=== PATIENT | female | born 1950 | race Caucasian/White ===

== ENCOUNTER 2018-01-05 06:23 | Inpatient (IN) | payer OTHER, MEDICARE ==
[2018-01-04 22:00] VITALS: PULSE 88
[~2018-01-05] VITALS: Ht 154.9 cm; Wt 60.8 kg
[~2018-01-05 06:23] MED LIST: AMLO5TAB2 PO; MEGE40TA PO; METO25TA3 PO; VITA2000 PO
[2018-01-05] MEDS ORDERED: SODIUM CHLORID 0.9% 500 ML IV PRN (07:15)
[2018-01-05] MEDS ORDERED: POVIDONE IODINE 5% (ANTISEPSIS KIT) 4 APPLICATIONS EACH NARE PRN (07:15)
[2018-01-05] MEDS ORDERED: CHLORHEXIDINE GLUCONATE 2 % 1 PACK (2 CLOTHS) TOPICAL PRN (07:15)
[2018-01-05] MEDS ORDERED: LACTATED RINGER'S 1000 ML IV PRN (07:15)
[2018-01-05] MEDS ORDERED: METOPROLOL TARTRATE 25 MG TAB PO PRN (07:15)
[2018-01-05] MEDS ORDERED: INSULIN HUMAN REGULAR 1,000 UNITS/10 ML VIAL SQ PRN (07:15)
[2018-01-05] MEDS ORDERED: SUGAMMADEX SODIUM 200 MG/2 ML VIAL IV PUSH ONE (07:17)
[2018-01-05] MEDS ORDERED: ACETAMINOPHEN 1000 MG/100 ML 100 ML IV ONE (07:17)
[2018-01-05] MEDS ORDERED: ARTIFICIAL TEARS OPTH OINT 3.5 APPLIC/3.5 GM TUBO ONE (07:17)
[2018-01-05] MEDS ORDERED: ceFAZolin INJ 1,000 MG VIAL ONE (07:38)
[2018-01-05] MEDS ORDERED: HEPARIN SODIUM - SQ 10,000 UNITS/ML VIAL ONE (07:38)
[2018-01-05] MEDS ORDERED: SODIUM CHLORIDE 0.9% INJ 100 ML ONE (07:38)
[2018-01-05] MEDS ORDERED: FAMOTIDINE 20 MG/2 ML VIAL ONE (08:06)
[2018-01-05] MEDS ORDERED: HEPARIN SODIUM - SQ 10,000 UNITS/ML VIAL SQ SCH (08:15)
[2018-01-05] MEDS ORDERED: ceFAZolin 1,000 MG/NS 100 ML IV SCH ×2 (08:15)
[2018-01-05] MEDS ORDERED: METHYLENE BLUE 10 MG/ML VIAL OTHER ONE (11:47)
[2018-01-05] MEDS ORDERED: ceFAZolin INJ 1,000 MG VIAL IV ONE ×3 (11:51→15:00)
[2018-01-05] MEDS ORDERED: STERILE WATER FOR INJECTION 20 ML VIAL IV ONE (12:00)
[2018-01-05] MEDS ORDERED: ONDANSETRON HCL 4 MG/2 ML VIAL IV ONE (12:00)
[2018-01-05] MEDS ORDERED: ESMOLOL HCL 100 MG/10 ML VIAL IV ONE (12:00)
[2018-01-05] MEDS ORDERED: ePHEDrine/NS 25 MG/5 ML SYRINGE IV ONE (12:00)
[2018-01-05] MEDS ORDERED: PROPOFOL 200 MG/20 ML AMP IV ONE (12:00)
[2018-01-05] MEDS ORDERED: DEXAMETHASONE SOD PHOS 4 MG/ML VIAL IV ONE (12:00)
[2018-01-05] MEDS ORDERED: NORMOSOL R INJ 1,000 ML IV ONE (12:00)
[2018-01-05] MEDS ORDERED: KETOROLAC TROMETHAMINE 30 MG/ML (IVP) VIAL IV PUSH ONE (12:00)
[2018-01-05] MEDS ORDERED: ROCURONIUM INJ 50 MG/5 ML SYRINGE IV PUSH ONE (12:00)
[2018-01-05] MEDS ORDERED: PHENYLEPH/NS 1000 MCG/10 ML SYR IV ONE (12:00)
[2018-01-05] MEDS ORDERED: LIDOCAINE HCL 1% PF 5 ML SYRINGE OTHER ONE (12:00)
[2018-01-05] MEDS ORDERED: VECURONIUM BROMIDE 20 MG VIAL IV ONE (12:00)
[2018-01-05] MEDS ORDERED: PHENYLEPHRINE HCL 10 MG/ML VIAL IV ONE (12:00)
[2018-01-05] MEDS ORDERED: *MEPERIDINE 25 MG INJ VIAL PERIprocedural Use ONLY ONE (12:47)
[2018-01-05] MEDS ORDERED: MIDAZOLAM HCL 2 MG/2 ML VIAL ONE (12:49)
[2018-01-05] MEDS: D5-1/2 NS + KCL 20 MEQ INJ 1,000 ML IV SCH (14:15)
[2018-01-05] MEDS ORDERED: SODIUM CHLORIDE 0.9% FLUSH 10 ML FLUSH IV FLUSH PRN (15:00)
[2018-01-05] MEDS: KETOROLAC TROMETHAMINE 30 MG/ML (IVP) VIAL IVP SCH ×2 (15:00→21:46)
[2018-01-05] MEDS ORDERED: diphenhydrAMINE HCL 25 MG CAP PO PRN (15:00)
[2018-01-05] MEDS ORDERED: DO NOT ADM ANY ANTICOAGULANT DRUGS PRN (15:00)
[2018-01-05] MEDS ORDERED: LORazepam 0.5 MG TAB PO PRN (15:00)
--- NOTE | 2018-01-05 16:27 | MP ---
cc: Zoey Daniels MD,Erin Britt MD DATE OF OPERATION: 01/05/2018 PREOPERATIVE DIAGNOSIS: 1. Uterine papillary serous carcinoma. 2. Enlarged uterus. POSTOPERATIVE DIAGNOSIS: 1. Uterine papillary serous carcinoma. 2. Enlarged uterus. 3. Extensive pelvic adhesions. PROCEDURE: Robotic-assisted laparoscopic hysterectomy, bilateral salpingo-oophorectomy, partial omentectomy, bilateral pelvic lymph node excisional biopsies, intraperitoneal biopsies, extensive lysis of adhesions. SURGEON: Zoey Daniels MD PATTERN ASSEMBLER: Erica coding assistant. ANESTHESIA: General endotracheal anesthesia. ESTIMATED BLOOD LOSS: 250 mL. IV FLUIDS: 1500 mL. URINE OUTPUT: 150 mL. HISTORY: A 67-year-old female with bleeding and evaluation biopsy showed uterine papillary serous carcinoma. Imaging showed a prominent uterus with a 5 centimeter strongly PET avid mass effect that seemed to be within the endometrial cavity, possibly growing in the myometrium. There was no overt evidence of metastatic disease beyond the uterus. She was counseled regarding these findings and recommendations for surgery. She was seen again in the preop holding area with family where she was again counseled. The findings were reviewed, the plan of care was discussed, questions were answered, she expressed good understanding and agrees to move forward with surgery. FINDINGS: The uterine cavity sounds to 13 centimeters. There is blood and some polypoid tumor that comes through the cervical os during dilation at the beginning of the case. In the peritoneal cavity there is no overt evidence of metastatic disease. The uterine fundus is enlarged with a mass-like effect. Tubes and ovaries grossly appear normal. The distal omentum is adherent densely in the pelvis. The lower edge of the omentum is stuck to the uterus, stuck against the left pelvic sidewall and colon, and the colon is overlying and obliterating access to the left adnexal structures. There are diverticulum without acute diverticulitis but the adhesions suggest result from prior diverticulitis. Right tube and ovary there are minimal adhesions. The appendix appears normal, although there are adhesions in the region of the ileocecal area to the right anterior abdominal wall, but the tissue in that region appears normal. The omentum grossly appears normal other than extensive adhesions. The large and small bowel and adjacent mesenteric are normal without obvious peritoneal implants and liver diaphragm edges appear smooth. There is no appreciably enlarged retroperitoneal adenopathy in the paraaortic or paracaval region. In the pelvis the lymph nodes are essentially normal with the exception of slightly prominent lymph nodes in the right distal external iliac region and in the left proximal external iliac region, but these were only slightly prominent. Retroperitoneal dissection bilaterally did not reveal any other suspicious lymph nodes. The uterus once removed showed a tumor to be at least 3.5 centimeters in base. In discussion with pathology they are made aware that I curetted a large volume of tumor out of the endometrial cavity to reduce the size of the uterus to help deliver the specimen transvaginally and that curetted tumor was also sent down for permanent histopathologic evaluation, in addition to the uterus, cervix, tubes and ovaries. STATEMENT OF COMPLEXITY/MODIFIER: Complexity and duration of this case was increased significantly and required extensive additional dissection due to significant adhesions and requiring significant adhesiolysis to gain access to the pelvis to restore normal anatomy and to accomplish surgical objectives and a modifier should be applied accordingly. PROCEDURE: She was taken to the operating room and placed in dorsal lithotomy position after general endotracheal anesthesia was administered. Timeout was undertaken. She was identified by sight recognition and hospital ID bracelet and the proposed procedure was reviewed and confirmed. She was carefully positioned in Josue stirrups. Her arms were padded and secured to the sides. She was further secured to the operating table with egg crate padding and tape in a cross chest over the shoulder fashion. All sites were noted to be properly aligned with no malalignments or pressure points. She was placed in lithotomy position, after being prepped and draped in sterile fashion, cervix grasped, uterine cavity sounded up to 13 centimeters with findings as described above. The cervix was dilated and a standard VCare manipulator was inserted and secured in the usual fashion. Motta catheter was placed in the bladder. She was returned to low lithotomy position. Change of sterile gloves was undertaken. We completed draping in anticipation of laparoscopy, confirmed that an orogastric tube was in the stomach on suction. With manual elevation of the abdominal wall and direct laparoscopic visualization a 5 mm cannula was introduced into the left upper quadrant and atraumatic entry was confirmed. Carbon dioxide gas was insufflated into the peritoneal cavity. A 12 mm cannula was placed in midline above the umbilicus. An 8 mm cannula was placed in the right upper quadrant, left lateral quadrant. Original 5 mm was exchanged for an 8 mm cannula. She was placed in steep Trendelenburg position. Peritoneal washings were obtained for cytology. Lysis of adhesions were initiated and the small bowel was folded back on its mesenteric root beneath the omentum that was densely adherent as described and three Ray-Brent sponges were placed in the peritoneal cavity. The robotic system was brought into the operative field, attached in the usual fashion. Monopolar scissors, fenestrated bipolar forceps and ProGrasp manipulators were placed in arms number one, two and three, respectively and I took my place at the surgeon's console. Adhesiolysis was initiated on the left side where sharp dissection was used to free the omentum from its adhesions. There was vascular attachments to the uterine fundus that resulted in some mild continued oozing. A distal segment of the omentum was isolated, rendered hemostatic with bipolar cautery and transected in stepwise fashion to take a large piece of omentum as additional adhesiolysis was carried out to remove it from the left pelvic sidewall and this was placed in the cul-de-sac as partial omentectomy for permanent histopathologic analysis. Additional adhesions were taken down to mobilize the omentum above the pelvis brim and then adhesions were taken down to free the colon from its attachments against the left pelvic sidewall to mobilize the adnexa, to gain access to the pelvic sidewall and retroperitoneal structures. The left round ligament was isolated, cauterized, transected. The anterior and posterior leafs of the broad ligament were further opened. The left ureter was identified. The left infundibulopelvic ligament was isolated. The intervening peritoneum was opened. The infundibulopelvic ligament was isolated above the pelvic brim where it was cauterized and transected. Posterior peritoneum opened along the left side of the uterus and cervix and the left vesicouterine peritoneum dissected off the lower uterine segment and cervix. The left uterine vessels were skeletonized and cauterized. Attention was directed toward the right side. Right round ligament isolated, cauterized, transected. The anterior and posterior leafs of the broad ligament were opened. The right ureter was identified, right infundibulopelvic ligament was isolated, intervening peritoneum was opened. The infundibulopelvic ligament was isolated to the level of the pelvic brim where it was cauterized and transected. Posterior peritoneum was opened along the right side of the uterus and cervix and the right vesicouterine peritoneum was dissected off the lower uterine segment and cervix and the right uterine vessels were skeletonized and cauterized. The uterus was now blenched as the main blood supplies had been secured, so the right uterine vessels were transected. The cardinal, paracervical and uterosacral ligaments were isolated carefully, cauterized and transected in a step-bates fashion until attachments were released along the right side of the uterus and cervix. Attention was redirected toward the left side where the left uterine vessels were transected. The cardinal, paracervical and uterosacral ligaments were isolated, cauterized and transected in a step-bates fashion, thereby freeing the attachments along the left side of the uterus and cervix, thereby freeing the attachments along the left side. Circumferential colpotomy was performed the cervix from the upper vagina. The specimen was too large in its current state for transvaginal delivery. At this point I left the surgeon's console to the perineum where the cervix was grasped with tenaculum and the uterine cavity was curetted where a large volume of tumor and old blood and clot were removed. In the process of curetting the cavity the uterine size reduced significantly such that the specimen was now able to be delivered transvaginally, which included uterus, cervix, tubes and ovaries. A pneumo-occluder balloon was placed in the vagina to maintain pneumoperitoneum. I returned to the surgeon's console. Using a ring forceps the partial omentectomy specimen was grasped and delivered transvaginally. Instruments one and three exchanged for needle drivers as 0-Vicryl suture was introduced, the vaginal cuff was closed starting at the left corner, full-thickness closure including the posterior peritoneum and the edge of the uterosacral ligament tied via instrument tie. Suture was held on counter traction as running continuous full-thickness closure. It was carried across the vaginal apex to the contralateral corner where it was similarly fixed, secured in similar fashion and tied. The needle was cut and removed. The integrity of the bladder was confirmed by filling the bladder with saline dyed with methylene blue. The bladder distended nicely under pressure. There were no weak spots in the bladder, no visible blue dye, certainly no extravasation of dye. There was a good margin between the vaginal cuff suture line and the bladder. Good peristalsis of ureters bilaterally and the bladder was drained. Pathology came back showing sizeable tumor favoring papillary serous carcinoma. Retroperitoneal dissection was carried out on the right and left pelvis opening the paravesical, pararectal spaces. The lymphatic tissues were inspected, essentially normal throughout and in keeping with our preoperative discussion and keeping with her wishes as again expressed in the preop holding area, she wanted to minimize morbidity and in the absence of obvious disease we limited lymph node biopsies to anything that appeared suspicious but would forego full lymphadenectomy to try to avoid lymphedema and ultimately it may not impact on our treatment recommendations. Nevertheless, a single isolated lymph node perhaps a centimeter in the distal external iliac area on the right side was removed with bipolar cautery and sharp dissection and placed in the right paracolic gutter for later retrieval and placed on top of a Ray-Brent sponge. The remaining lymphatics were inspected, palpated and no abnormality seen. Attention was directed to inspecting and palpating the paracaval and paraaortic region which showed normal lymphatic tissue. Attention was redirected to the left pelvis where after the paravesical and pararectal spaces had been opened, lymphatics were visibly and palpably inspected. A slightly prominent lymph node in the proximal external iliac region was isolated, removed with bipolar cautery and sharp dissection and placed in the right paracolic gutter. Peritoneal biopsies were then obtained from the abdomen and pelvis. Adhesions were taken down. The adhesions were included with the biopsies. Multifocal peritoneal biopsies were collected and placed in the right paracolic gutter. The pelvis was aggressively irrigated. All sites were hemostatic after small bleeders were rendered hemostatic with bipolar cautery and hemostatic Surgicel powder was placed across the vaginal cuff and lateral pelvic sidewalls. It was felt that all reasonable surgical objectives had been completed, so the instruments were removed. The robotic system was disengaged from the operative field. I reentered the bedside under sterile condition. Using laparoscopic visualization a 12 centimeter EndoCatch bag was used to capture the lymph nodes and peritoneal biopsies which were brought out through the abdominal wall. The specimens were and labeled appropriately for permanent histopathologic analysis. Next, each of the three Ray-Brent sponges that had been placed in the peritoneal cavity were grasped, each were removed individually, inspected and noted to be removed in their entirety. There were no remaining foreign objects in the peritoneal cavity. Preliminary counts were correct. Attention was directed toward closing. The 12 mm fascial defect was closed with 0-Vicryl suture using a needle pass apparatus, tied securely which rendered the fascia completely airtight and hemostatic. The remaining cannulas were withdrawn. Carbon dioxide gas was removed from the peritoneal cavity. 3-0 Vicryl subcutaneous, 3-0 Vicryl subcuticular and Steri-Strips were used to close the skin incisions. She was returned to dorsal lithotomy position. Pelvic exam confirmed the vaginal cuff was well supported, no vaginal lacerations, no remaining foreign objects in the vagina. Final counts were correct. Superficial irritation at the introitus was rendered hemostatic with topical silver nitrate. She was returned to dorsal supine position and was pending reversal of anesthesia when I left the operating room to precede her to the post-anesthesia care unit and to speak to family members who were waiting in the surgical waiting area. MD CHU Cui/ELMER/deedee , 01:37 PM , 03:04 PM
[2018-01-05] MEDS: traMADol HCL 50 MG TAB PO PRN (17:12)
--- NOTE | 2018-01-05 18:17 | EKG ---
Date Performed: 01/05/2018 Time Performed: 07:49:34 PTAGE: 67 years EKG: SINUS TACHYCARDIA WITH OCCASIONAL VENTRICULAR PREMATURE COMPLEXES ABNORMAL RHYTHM ECG NO PREVIOUS TRACING DOCTOR: Shaan Chaves Interpretating Date/Time 01/05/2018 18:16:30
[2018-01-05 18:30] VITALS: BP 136/58; PULSE 104; RESP 18; TEMP 97.5; O2SAT 100
[2018-01-05 19:00] VITALS: PULSE 104
[2018-01-05 20:00] VITALS: BP 106/53; PULSE 109; PULSE 90; RESP 16; TEMP 98.5; O2SAT 98
[2018-01-05 21:00] VITALS: PULSE 82
[2018-01-05] MEDS: SODIUM CHLORIDE 0.9% FLUSH 10 ML FLUSH IV FLUSH SCH (21:00)
[2018-01-05 23:00] VITALS: PULSE 78
[2018-01-06] VITALS (23 sets, daily range): BP systolic 94–128; BP diastolic 49–79; PULSE 70–126; RESP 14–20; TEMP 97.6–99.6; O2SAT 98–100
[2018-01-06] MEDS: D5-1/2 NS + KCL 20 MEQ INJ 1,000 ML IV SCH ×2 (00:35→19:54)
[2018-01-06] MEDS: KETOROLAC TROMETHAMINE 30 MG/ML (IVP) VIAL IVP SCH ×2 (04:00→08:05)
[2018-01-06] MEDS ORDERED: TRAM50 PO (07:23)
--- NOTE | 2018-01-06 07:45 | MD ---
cc: Zoey Daniels MD MerrittLaurita holbrook MD,Anitha Huston MD DATE OF DISCHARGE: DATE OF ADMISSION: 01/05/2018 DATE OF DISCHARGE: 01/06/2018 PROCEDURE: 01/05/2018, robotic-assisted laparoscopic hysterectomy, bilateral salpingo-oophorectomy, partial omentectomy, bilateral pelvic lymph node excisional biopsies, peritoneal biopsies. DIAGNOSES: Uterine papillary serous carcinoma. HOSPITAL COURSE: She has done well in early postoperative period. Hemodynamically stable. Ins and outs 2340/3150. Labs pending. PHYSICAL EXAMINATION: VITAL SIGNS: She is afebrile, pulse ranging from 76-92, respirations 14-16, blood pressure 94-136/49-58, O2 saturations greater than or equal to 98%. GENERAL: Alert and oriented x 3. LUNGS: Clear, mild rales at the bases. CARDIAC: Her heart rate is irregular rate and rhythm, consistent with baseline, rate controlled. ABDOMEN: Soft. Incisions clean and dry. GYNECOLOGIC: No bleeding. EXTREMITIES: Nontender. ASSESSMENT: Postoperative day #1. Activities, restrictions again discussed. Preliminary findings, preliminary pathology reviewed. Questions asked and answered. She expressed good understanding. PLAN: I anticipate she will meet criteria for discharge to home. She is to contact our office to ensure she has followup scheduled in 2 weeks. She is to resume prior medications. She will have a prescription for tramadol. She knows she can supplement with [id number] medication as needed. Furthermore, our office number is again made available and she can contact us should she have any questions or problems between now and the time of discharge. MD CHU Cui/DAYRON , 07:29 AM , 07:43 AM
[2018-01-06] MEDS: SODIUM CHLORIDE 0.9% FLUSH 10 ML FLUSH IV FLUSH SCH ×2 (09:00→20:04)
[2018-01-06] MEDS ORDERED: METOPROLOL TARTRATE 25 MG TAB PO SCH (09:00)
[2018-01-06] MEDS ORDERED: amLODIPine BESYLATE 5 MG TAB PO SCH (09:00)
[2018-01-06 10:19] LABS: BICARBONATE 23.4 MEQ/L (21.0-32.0); CALCIUM 8.3 MG/DL (8.5-10.1); CREATININE 0.92 MG/DL (0.50-1.00)
[2018-01-06 11:58] LABS: AUTOMATED NEUTROPHIL # 7.1 TH/MM3 (1.8-7.7); BASOPHIL % 0.2 % (0.0-2.0); EOSINOPHIL % 0.1 % (0.0-4.0); LYMPH % 26.7 % (9.0-44.0); LYMPHOCYTE # 2.8 TH/MM3 (1.0-4.8); MEAN CELL VOLUME 89.4 FL (80.0-100.0); MEAN CORPUSCULAR HEMOGLOBIN 31.7 PG (27.0-34.0); MEAN CORPUSCULAR HGB CONC 35.4 % (32.0-36.0); MEAN PLATELET VOLUME 8.3 FL (7.0-11.0); MONO % 5.8 % (0.0-8.0); MONOCYTE # 0.6 TH/MM3 (0-0.9); NEUT % 67.2 % (16.0-70.0); PLATELET COUNT 216 TH/MM3 (150-450); RED BLOOD COUNT 2.33 MIL/MM3 (4.00-5.30); RED CELL DISTRIBUTION WIDTH 14.1 % (11.6-17.2); WHITE BLOOD COUNT 10.6 TH/MM3 (4.0-11.0)
[2018-01-06 12:06] LABS: HEMATOCRIT 20.8 % (35.0-46.0); HEMOGLOBIN 7.4 GM/DL (11.6-15.3)
[2018-01-06 15:35] LABS: HEMATOCRIT 21.3 % (35.0-46.0); HEMOGLOBIN 7.4 GM/DL (11.6-15.3); MEAN CORPUSCULAR HEMOGLOBIN 31.1 PG (27.0-34.0); MEAN CORPUSCULAR HGB CONC 34.6 % (32.0-36.0); MEAN PLATELET VOLUME 8.4 FL (7.0-11.0); PLATELET COUNT 216 TH/MM3 (150-450); RED BLOOD COUNT 2.37 MIL/MM3 (4.00-5.30); RED CELL DISTRIBUTION WIDTH 14.5 % (11.6-17.2); WHITE BLOOD COUNT 10.3 TH/MM3 (4.0-11.0)
--- NOTE | 2018-01-06 15:44 | MB ---
cc: Zoey Daniels MD,Laurita Britt MD DATE OF CONSULT: This is a followup visit, seeing Penny Fung, who remains asymptomatic. She has been up walking around, voiding without difficulty, tolerating oral intake and states that she feels very well and is anxious to go home. She is seen again because her late draw blood work results finally came back showing a hemoglobin of 7.4 and a hematocrit of 20.8. This was reported at 11:35 a.m. White count 10.6, platelets 216. Electrolytes essentially normal, BUN and creatinine 4 and 0.92. Potassium 3.5. It is noted that on 01/02 her hemoglobin was obtained and was 13, so this represents a substantial drop since that lab value. Pertinent in her history is she states that for approximately 6 or 7 days prior to surgery, she started bleeding quite heavily and was passing clots. She brought this to the attention of our office, and we were able to move her surgery up as she was scheduled for surgery next week. We were able to move her surgery up to of this week (yesterday). It is noted that she remains afebrile. Pulse ranges from 76 to 104. Respirations are 14-20. Her blood pressure remains in the 122-128 over 59-66 range, and her pulse ox is 100% on room air. She is alert and oriented x 3. No acute distress. Bright spirits. LUNGS: Clear. CARDIOVASCULAR: Regular rate and rhythm. ABDOMEN: Completely soft. There is no rigidity, no rebound or guarding. The incisions are healing well. There is some slight ecchymosis around the incisions. No expanding changes. No hematoma. No palpable induration. GYNECOLOGIC: She reports no bleeding, just a very small amount of discharge. Time was spent discussing with her reviewing the findings of her case to date to go from a hemoglobin of 13 down to 7.4 is concerning; however, clinically, she is doing very well, hemodynamically stable, and I suspect that that notable drop is actually reflective of the 3 days of heavy bleeding between getting the hemoglobin drawn on 01/02/2018 and the followup postop hematocrit drawn on 01/06/2018. Nevertheless, I have explained the reason that we ordered a repeat CBC that will be drawn today at 3 p.m. If that has stabilized or has increased a bit due to fluid equilibration, I think we have an explanation of a falsely elevated value and not an accurate preop value given the heavy bleeding she reports for days prior to surgery. Conversely, should the hemoglobin drop further despite her clinical presentation and hemodynamic stability, we might need to be concerned about the possibility of some postoperative oozing. The intraoperative blood loss was only estimated to be approximately 250 mL, so that would not explain the change. Nonetheless, she is gracious and understands and willing to stay here longer to ensure that she is doing well. We would like to make sure she is doing well before she goes home, and she certainly is an individual who looks and feels significantly better than her laboratory value would suggest. ASSESSMENT: 1. Postoperative day #1 significant drop in hematocrit as observed, outlined and theorized above. 2. Discussion. PLAN: Recheck CBC today at 3 p.m. Will await those results and make a decision if she may be discharged or if any further followup or intervention is warranted. MD CHU Cui/SCAR , 02:32 PM , 03:43 PM
[2018-01-06 18:21] LABS: HEMOGLOBIN 7.1 GM/DL (11.6-15.3); MEAN CORPUSCULAR HEMOGLOBIN 30.9 PG (27.0-34.0); MEAN CORPUSCULAR HGB CONC 34.7 % (32.0-36.0); PLATELET COUNT 211 TH/MM3 (150-450); WHITE BLOOD COUNT 9.6 TH/MM3 (4.0-11.0)
[2018-01-06 18:27] LABS: HEMATOCRIT 20.5 % (35.0-46.0)
[2018-01-06] MEDS: traMADol HCL 50 MG TAB PO PRN (20:01)
[2018-01-07] VITALS: PULSE 94
[2018-01-07 00:30] VITALS: BP 99/55; PULSE 106; RESP 16; TEMP 98.4; O2SAT 97
[2018-01-07 01:00] VITALS: PULSE 90
[2018-01-07 02:00] VITALS: PULSE 88
[2018-01-07 03:00] VITALS: PULSE 96
[2018-01-07 05:27] VITALS: BP 133/74; PULSE 113; RESP 18; TEMP 98.1; O2SAT 96
[2018-01-07 05:57] LABS: AUTOMATED NEUTROPHIL # 4.8 TH/MM3 (1.8-7.7); BASOPHIL % 0.6 % (0.0-2.0); EOSINOPHIL # 0.1 TH/MM3 (0-0.4); EOSINOPHIL % 0.7 % (0.0-4.0); HEMATOCRIT 21.2 % (35.0-46.0); HEMOGLOBIN 7.4 GM/DL (11.6-15.3); LYMPH % 34.5 % (9.0-44.0); LYMPHOCYTE # 2.8 TH/MM3 (1.0-4.8); MEAN CELL VOLUME 89.8 FL (80.0-100.0); MEAN CORPUSCULAR HEMOGLOBIN 31.2 PG (27.0-34.0); MEAN CORPUSCULAR HGB CONC 34.7 % (32.0-36.0); MEAN PLATELET VOLUME 8.2 FL (7.0-11.0); MONO % 4.4 % (0.0-8.0); MONOCYTE # 0.4 TH/MM3 (0-0.9); NEUT % 59.8 % (16.0-70.0); PLATELET COUNT 217 TH/MM3 (150-450); RED BLOOD COUNT 2.36 MIL/MM3 (4.00-5.30); RED CELL DISTRIBUTION WIDTH 14.3 % (11.6-17.2)
[2018-01-07 06:21] LABS: CALCIUM 7.9 MG/DL (8.5-10.1); CREATININE 0.63 MG/DL (0.50-1.00)
== END 2018-01-07 06:52 | disposition home or self-care (01) | DRG 740 ==
LOC: HSDC 06:23 → HSDI 12:30 → HCIN 18:23
PROVIDERS: ADMIT Obstetrics & Gynecology Gynecologic Oncology; ATTEND Obstetrics & Gynecology Gynecologic Oncology
PROC: 0UT2FZZ Resection of Bilateral Ovaries, Via Natural or Artificial Opening With Percutaneous Endoscopic Assistance (ICD-10-PCS; 2018-01-05)
PROC: 0UT7FZZ Resection of Bilateral Fallopian Tubes, Via Natural or Artificial Opening With Percutaneous Endoscopic Assistance (ICD-10-PCS; 2018-01-05)
PROC: 07BC4ZZ Excision of Pelvis Lymphatic, Percutaneous Endoscopic Approach (ICD-10-PCS; 2018-01-05)
PROC: 0DNU4ZZ Release Omentum, Percutaneous Endoscopic Approach (ICD-10-PCS; 2018-01-05)
PROC: 0DBU4ZZ Excision of Omentum, Percutaneous Endoscopic Approach (ICD-10-PCS; 2018-01-05)
PROC: 8E0W4CZ Robotic Assisted Procedure of Trunk Region, Percutaneous Endoscopic Approach (ICD-10-PCS; 2018-01-05)
PROC: 0DBW4ZX Excision of Peritoneum, Percutaneous Endoscopic Approach, Diagnostic (ICD-10-PCS; 2018-01-05)
PROC: 0UT9FZZ Resection of Uterus, Via Natural or Artificial Opening With Percutaneous Endoscopic Assistance (ICD-10-PCS; principal; 2018-01-05 08:09)
DX: C54.1 Malignant neoplasm of endometrium (principal); R71.0 Precipitous drop in hematocrit; I10 Essential (primary) hypertension; N73.6 Female pelvic peritoneal adhesions (postinfective); N93.9 Abnormal uterine and vaginal bleeding, unspecified; Z88.5 Allergy status to narcotic agent; Z91.041 Radiographic dye allergy status
CPT/HCPCS: 36430; 80048; 85025; 85027; 86850; 86900; 86901; 86920; 88112; 88305; 88307; 88309; 88331; 93005; 94150; J0131; J0690; J1100; J1644; J1885; J2175; J2250; J2370; J2405; J3010; J3480; J7120; P9016

== ENCOUNTER 2018-03-03 06:07 | Day surgery (SDC) | payer OTHER ==
[~2018-03-03] VITALS: Ht 154.9 cm; Wt 62.3 kg
[~2018-03-03 06:07] MED LIST changes: -MEGE40TA PO; +TRAM50 PO
[2018-03-03 06:52] VITALS: BP 173/99; PULSE 81; RESP 20; TEMP 97.7; O2SAT 99
[2018-03-03] MEDS ORDERED: METO1TAB9 PO (06:57)
[2018-03-03] MEDS ORDERED: VITACAP7 PO (06:57)
[2018-03-03] MEDS ORDERED: LIDOCAINE 1%/EPINEPHrine 1:100,000 SOLN 30 ML VIAL ONE (07:36)
[2018-03-03] MEDS ORDERED: MIDAZOLAM HCL 5 MG/5 ML VIAL ONE (07:41)
[2018-03-03] MEDS ORDERED: SODIUM CHLOR 0.9% 250 ML INJ 250 ML ONE (07:42)
[2018-03-03] MEDS ORDERED: fentaNYL CITRATE 250 MCG/5 ML AMP ONE (07:42)
[2018-03-03] MEDS ORDERED: ceFAZolin 2 GM PREMIX 50 ML ONE (07:42)
[2018-03-03] MEDS ORDERED: VANCOMYCIN HCL 1000 MG VIAL ONE (07:42)
--- NOTE | 2018-03-03 08:38 | PD.RAD ---
Post Procedure Progress Note Pre Procedure Diagnosis: (1) Uterine cancer Post Procedure Diagnosis: (1) Uterine cancer Procedure Date: March 03, 2018 Supervising Radiologist: Cezar Boss Estimated blood loss: 4cc Anesthesia: Local, Conscious Sedation Plan of Activity Patient to Unit: ROPU Patient Condition: Good Additional Comments: Port placed via the right IJ. Catheter in good position OK for use Full report to follow See PACS Report for procedural detail/treatment Cezar Boss MD March 03, 2018 08:38
[2018-03-03 08:45] VITALS: BP 124/81; PULSE 91; RESP 18; TEMP 97.9; O2SAT 98
[2018-03-03] MEDS ORDERED: SODIUM CHLORIDE 0.9% FLUSH 10 ML FLUSH IVF PRN (08:45)
[2018-03-03 09:00] VITALS: BP 138/66; PULSE 89; RESP 20; O2SAT 97
[2018-03-03] MEDS ORDERED: diphenhydrAMINE HCL 50 MG/ML VIAL ONE (09:12)
[2018-03-03 09:15] VITALS: BP 138/77; PULSE 80; RESP 20; O2SAT 96
[2018-03-03 09:30] VITALS: BP 140/77; PULSE 79; RESP 20; O2SAT 99
[2018-03-03 10:00] VITALS: BP 123/67; PULSE 82; RESP 20; O2SAT 97
--- NOTE | 2018-03-03 15:46 | RADRPT ---
EXAM DATE/TIME: 03/03/2018 08:11 [facility] COMPARISON: No previous studies available for comparison. INDICATIONS : Patient presents with endometrial cancer in need of port placement for treatment. MEDICAL HISTORY : Cancer Anxiety SURGICAL HISTORY : Colonoscopy Cataract removal Tubal ligation Breast biopsy Tonsillectomy ENCOUNTER: Initial ACUITY: 4-6 months PAIN SCORE: 0/10 LOCATION: N/A FLUORO TIME: 0.7 minutes IMAGE SERIES: 1 SEDATION TIME: 30 minutes ACCESS: Right internal jugular vein SEDATION: 1.) 3.5 mg midazolam (Versed) IV 2.) 175 mcg fentanyl (Sublimaze) IV Prophylactic antibiotics were administered with appropriate pre-procedure timing. Vancomycin within 2 hours of procedure, Ancef (or alternative) within 1 hour of procedure. DEVICE: 1. 8 Welsh single lumen Bioflo Port PROCEDURE : 1. Continuous pulse oximetry and EKG monitoring. 2. Intravenous conscious sedation. 3. Ultrasound guidance for venous access. 4. Fluoroscopic guided implantable central venous port placement. The patient was placed supine. The neck was prepped in sterile fashion. Full sterile technique was u sed, including cap, mask, sterile gloves and gown, and a large sterile sheet. Hand hygiene and 2% ch lorhexidine Betadine was utilized per protocol for cutaneous antisepsis with appropriate dry time for site. Sterile gel and sterile probe cover were utilized for ultrasound guidance. The skin and sub cutaneous tissues were infiltrated with local anesthetic solution. Under direct ultrasound guidance, central venous access was accomplished in the targeted vessel. The ultrasound images depicting access guidance were stored and saved to PACS for permanent record. A s ubcutaneous pocket was created using blunt dissection. The port was introduced to the pocket. The c atheter tubing was fed through a subcutaneous tunnel to the venotomy site. The catheter tubing was c ut to a suitable length and then was introduced through a valved Peel-Away sheath and positioned with catheter tubing tip at the cavo-atrial junction level. The pocket incision was closed with subcutic ular Vicryl suture. Steri-Strips were applied. The port was flushed and locked with heparin solutio n per protocol. Sterile dressing was applied to the site. The patient tolerated the procedure well. Conscious sedation was performed with the prescribed dosages and duration as above in the presence of an independent trained radiology nurse to assist in the monitoring of the patient. EKG and oximetry remained stable throughout the procedure. The patient tolerated the procedure well and there were no complications. The patient was sent to post anesthesia recovery in stable condition. CONCLUSION: Uncomplicated ultrasound and fluoroscopic guided implanted central venous port catheter placement as described in detail above. An 8 Welsh Power port was placed. Cezar Boss MD on March 03, 2018 at 15:43 Board Certified Radiologist. This report was verified electronically.
== END 2018-03-03 10:45 | disposition home or self-care (01) ==
LOC: HROP 06:07 → HRIP 06:08 → HROP 10:45
PROVIDERS: ATTEND Obstetrics & Gynecology Gynecologic Oncology
DX: C54.1 Malignant neoplasm of endometrium (principal)
CPT/HCPCS: 36561; 76937; 77001; 99152; 99153; C1788; J0690; J1200; J1642; J2250; J3010; J3370; J7050

== ENCOUNTER 2018-03-15 07:58 | Day surgery (SDC) | payer OTHER ==
[~2018-03-15] VITALS: Ht 154.9 cm; Wt 62.0 kg
[~2018-03-15 07:58] MED LIST changes: +METO1TAB9 PO; -METO25TA3 PO; -TRAM50 PO; +VITACAP7 PO
[2018-03-15] MEDS ORDERED: IOHEXOL 350 MG/ML 50 ML BTL (for RAD DIAG) OTHER ONE (07:59)
[2018-03-15 08:20] VITALS: BP 196/96; PULSE 120; RESP 20; TEMP 98.2; O2SAT 98
[2018-03-15] MEDS ORDERED: SODIUM CHLOR 0.9% 1000 ML INJ 1,000 ML IV SCH (08:30)
[2018-03-15 10:20] VITALS: BP 165/96; PULSE 83; RESP 18; O2SAT 99
--- NOTE | 2018-03-15 10:24 | PD.RAD ---
Post Procedure Progress Note Pre Procedure Diagnosis: (1) Port-a-cath in place (2) Erythema (3) Uterine cancer Post Procedure Diagnosis: (1) Erythema (2) Uterine cancer (3) Port-a-cath in place Procedure Date: March 15, 2018 Supervising Radiologist: Boo Berrios Proceduralist/Assist: RT Luciana(Donald), Other (John) Plan of Activity Patient to Unit: ROPU Patient Condition: Good See PACS Report for procedural detail/treatment Central Venous Access Device Procedure 1 Right Internal Jugular Infusaport Evaluation single lumen Wolof: 8 Findings: Port patent, in excellent position. No extravasation. Boo Berrios MD March 15, 2018 10:24
--- NOTE | 2018-03-15 12:43 | RADRPT ---
EXAM DATE/TIME: 03/15/2018 10:10 [place] COMPARISON: No previous studies available for comparison. INDICATIONS : Patient presents with uterine cancer in need of port evaluation for possible microleak. MEDICAL HISTORY : Anxiety Uterine cancer SURGICAL HISTORY : Hysterectomy Lymp node biopsies Extensive lysis of adhesions ENCOUNTER: Initial ACUITY: 3 days PAIN SCORE: 0/10 LOCATION: N/A FLUORO TIME: 0.30 minutes IMAGE SERIES: 2 CONTRAST: 6 cc Omnipaque (iohexol) 350 PROCEDURE : 1. Access of [id number]. 2. Port patency injection. The risks, benefits and alternatives to the procedure were explained and verbal and written consent w as obtained. The patient was placed supine. The port was prepped in sterile fashion. Full sterile t echnique was used, including cap, mask, sterile gloves and gown, and a large sterile sheet. Hand hyg iene and 2% chlorhexidine prep was utilized per protocol for cutaneous antisepsis with appropriate dr y time for site. Patient reports a severe contrast allergy over 20 years ago. She received the standard steroid prep. The previously placed port was accessed and positive contrast was injected for evaluation. Injection demonstrates the port to be widely patent, in excellent position with no extravasation. CONCLUSION: 1. Normal radiographic appearance of the port without obstruction, extravasation or malpositioning. 2. No immediate reaction to contrast injection. Patient will be observed in [facility] for one hour. Boo Berrios MD on March 15, 2018 at 10:36 Board Certified Radiologist. This report was verified electronically.
== END 2018-03-15 11:10 | disposition home or self-care (01) ==
LOC: HROP 07:58 → HRIP 07:59 → HROP 11:10
PROVIDERS: ATTEND Nurse Practitioner Family
DX: Z45.2 Encounter for adjustment and management of vascular access device (principal); C55 Malignant neoplasm of uterus, part unspecified; F41.9 Anxiety disorder, unspecified; Z85.42 Personal history of malignant neoplasm of other parts of uterus
CPT/HCPCS: 36598; Q9967